=== PATIENT | male | born 1995 | race Caucasian/White ===

== ENCOUNTER 2020-03-31 08:26 | Emergency (ER) | payer OTHER ==
[2020-03-31 08:34] VITALS: BP 122/73; PULSE 180
--- NOTE | 2020-03-31 08:54 | EDM.PDOC ---
ED HPI GENERAL MEDICAL PROBLEM - General Chief Complaint: Trauma Stated Complaint: trauma Time Seen by Provider: 03/31/20 08:41 Source of Information: Reports: Patient History Limitations: Reports: No Limitations - History of Present Illness INITIAL COMMENTS - FREE TEXT/NARRATIVE: This patient is a 25 year old male that presents to the ER via private vehicle. 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 He reports his safety harness caught, and dragged him several feet on top of the train, then he fell down in between the trains about 20 feet. Trauma Code was called. Patient undressed for exam. Patient was ambulatory into the ER. Patient reports his only pain complaint is to the left shoulder and left elbow up to the shoulder. Patient denies hitting his head, loc, n, v, vision changes, back pain, neck pain, loc, abd pain, urinary/bowel incontinence, legs pain, RUE pain. Patient has refused pain medications. Onset: Today Onset Date: 03/31/20 Duration: Other ([employer]) Location: Reports: Back, Upper Extremity, Left Front/Back Body Image: 1 - superficial abrasions 2 - pain, tenderness. Left anterior shoulder/clavicle. 3 - pain, tenderness. Quality: Reports: Ache, Throbbing Severity: Moderate Improves with: Reports: Immobilization Worsens with: Reports: Movement Associated Symptoms: Denies: Confusion, Chest Pain, Cough, cough w sputum, Diaphoresis, Fever/Chills, Headaches, Loss of Appetite, Malaise, Nausea/Vomiting , Rash, Seizure, Shortness of Breath, Syncope, Weakness Left Shoulder Pain Score (Numeric/FACES): 8 - Related Data Allergies Allergy/AdvReac Type Severity Reaction Status Date / Time No Known Allergies Allergy Verified 03/31/20 08:27 Home Meds: Home Meds DULoxetine HCl [Duloxetine HCl] 20 mg PO DAILY 03/31/20 [History] Topiramate 50 mg PO DAILY 03/31/20 [History] Past Medical History - Past Health History Medical/Surgical History: Denies Medical/Surgical History HEENT History: Reports: None Other HEENT History: HX OF 13 concussions Other Neuro History: hx of 13 concussions - Past Surgical History HEENT Surgical History: Reports: None Review of Systems - Review of Systems Review Of Systems: See Below Constitutional: Reports: No Symptoms Eyes: Reports: No Symptoms. Denies: Blurred Vision, Foreign Body Sensation, Pain, Vision Change Ears: Reports: No Symptoms Nose: Reports: No Symptoms Mouth/Throat: Reports: No Symptoms Respiratory: Reports: No Symptoms. Denies: Shortness of Breath, Wheezing, Pleuritic Chest Pain, Cough, Sputum, Hemoptysis Cardiovascular: Reports: No Symptoms. Denies: Chest Pain, Lightheadedness, Palpitations, Syncope GI/Abdominal: Reports: No Symptoms. Denies: Abdominal Pain, Nausea, Vomiting Genitourinary: Reports: No Symptoms Musculoskeletal: Reports: Shoulder Pain (left), Arm Pain (left upper). Denies: Neck Pain, Back Pain, Hand Pain, Leg Pain, Foot Pain Skin: Reports: No Symptoms Neurological: Reports: No Symptoms. Denies: Confusion, Dizziness, Headache, Seizure, Syncope, Tingling, Tremors, Trouble Speaking, Difficulty Walking, Weakness, Change in Speech, Gait Disturbance Psychiatric: Reports: No Symptoms ED EXAM, GENERAL - Physical Exam Exam: See Below Exam Limited By: No Limitations General Appearance: Alert, WD/WN, No Apparent Distress Eye Exam: Bilateral Eye: EOMI, Normal Inspection, PERRL Ears: Normal External Exam, Normal Canal, Hearing Grossly Normal, Normal TMs Ear Exam: Bilateral Ear: Auricle Normal, Canal Normal, TM normal Nose: Normal Inspection, Normal Mucosa, No Blood. No: Nasal Tenderness, Nasal Deformity Throat/Mouth: Normal Inspection, Normal Lips, Normal Teeth, Normal Gums, Normal Oropharynx, Normal Voice, No Airway Compromise Head: Atraumatic, Normocephalic. No: Facial Swelling, Facial Tenderness, Sinus Tenderness Neck: Normal Inspection, Supple, Non-Tender, Full Range of Motion. No: Limited Range of Motion, Tender Lateral, Tender Midline Respiratory/Chest: No Respiratory Distress, Lungs Clear, Normal Breath Sounds, No Accessory Muscle Use, Chest Non-Tender. No: Respiratory Distress, Decreased Breath Sounds, Crackles, Rales, Rhonchi, Wheezing, Stridor, Pleural Rub, Accessory Muscle Use, Retractions, Splinting, Prolonged Expiration Cardiovascular: Normal Peripheral Pulses, Regular Rate, Rhythm, No Edema, No Gallop, No JVD, No Murmur, No Rub Peripheral Pulses: 2+: Radial (L), Radial (R), Posterior Tibial (L), Posterior Tibial (R), Dorsalis Pedis (L), Dorsalis Pedis (R) GI/Abdominal: Normal Bowel Sounds, Soft, Non-Tender, No Organomegaly, No Distention, No Abnormal Bruit, No Mass, Pelvis Stable Back Exam: Full Range of Motion. No: Normal Inspection (abrasions), CVA Tenderness (L), CVA Tenderness (R), Decreased Range of Motion, Muscle Spasm, Paraspinal Tenderness, Vertebral Tenderness Extremities: No Pedal Edema, Normal Capillary Refill, Limited Range of Motion ( Left shoulder/uppe arm due to pain. In arm sling position. ), Other (Pain, tenderness left shoulder atnerior, left upper arm humerus, left elbow. Pulses +2 , cap refill < 2 sec, sensory intact. Neurovascular intact. ) Neurological: Alert, Oriented, Normal Cognition, Normal Gait, No Motor/Sensory Deficits Psychiatric: Normal Affect, Normal Mood Skin Exam: Warm, Dry, Normal Color, No Rash, Wound/Incision (superficial abrasions left back.) ED TRAUMA PROCEDURES - Splinting Left Upper Extremity Pre-Procedure NV Status: Normal Post-Procedure NV Status: Normal Splint Material: Sling Applied & Form Fitted By: Nurse Provider Post-Splint Application NV Check: NV Status Normal, Good Position Course - Vital Signs Last Recorded V/S: Last Vital Signs Temp 98.7 F 03/31/20 08:31 Pulse 180 H 03/31/20 08:31 Resp 18 03/31/20 08:31 BP 122/73 03/31/20 08:31 Pulse Ox 97 03/31/20 08:31 - Orders/Labs/Meds Orders: Active Orders 24 hr Category Date Time Status Chest 2V [CR] Stat Exams 03/31/20 08:41 Taken Elbow Min 3V Lt [CR] Stat Exams 03/31/20 08:41 Taken Shoulder Comp Lt [CR] Stat Exams 03/31/20 08:41 Taken Labs: Laboratory Tests 03/31/20 03/31/20 03/31/20 Range/Units 08:43 08:43 08:43 WBC 5.0 (5.0-10.0) 10^3/uL RBC 5.09 (4.50-6.00) 10^6/uL Hgb 15.0 (14.0-18.0) g/dL Hct 43.0 (40.0-54.0) % MCV 84.5 (82.0-94.0) fL MCH 29.5 (27.0-32.0) pg MCHC 34.9 (33.0-38.0) g/dL RDW Coeff of Jorge 13.1 (11.0-15.0) % Plt Count 278 (150-400) 10^3/uL Neut % (Auto) 58.2 (35-85) % Lymph % (Auto) 32.2 (10-55) % Monona % (Auto) 6.8 (0-16) % Eos % (Auto) 2.4 (0-5) % Baso % (Auto) 0.4 (0-3) % Neut # (Auto) 2.91 (1.80-7.00) 10^3/uL Lymph # (Auto) 1.61 (1.00-4.80) 10^3/uL Monona # (Auto) 0.34 (0.00-0.80) 10^3/uL Eos # (Auto) 0.12 (0.00-0.45) 10^3/uL Baso # (Auto) 0.02 10^3/uL PT 10.0 (9.7-12.3) SEC INR 0.99 (0.92-1.18) Sodium 141 (136-145) mEq/L Potassium 3.6 (3.5-5.0) mEq/L Chloride 105 (98-106) mEq/L Carbon Dioxide 26 (21-32) mmol/L BUN 17 (7-18) mg/dL Creatinine 1.2 (0.7-1.3) mg/dL Est Cr Clr Drug Dosing 89.51 mL/min Estimated GFR (MDRD) > 60 (>=60) mL/min Glucose 116 H (75-99) mg/dL Lactic Acid (0.4-2.0) mmol/L Calcium 9.0 (8.4-10.1) mg/dL Total Bilirubin 0.9 (0.0-1.0) mg/dL AST 24 (15-37) U/L ALT 58 (12-78) U/L Alkaline Phosphatase 55 (46-116) U/L Total Protein 7.4 (6.4-8.2) g/dL Albumin 4.1 (3.4-5.0) g/dL Amylase 40 (25-115) U/L Lipase 101 (73-393) U/L Urine Color (YELLOW) Urine Appearance (CLEAR) Urine pH (4.5-8.0) Ur Specific Beebe (1.003-1.020) Urine Protein (NEGATIVE) mg/dL Urine Glucose (UA) (NEGATIVE) mg/dL Urine Ketones (NEGATIVE) mg/dL Urine Occult Blood (NEGATIVE) Urine Nitrite (NEGATIVE) Urine Bilirubin (NEGATIVE) Urine Urobilinogen (0.2-1.0) EU/dL Ur Leukocyte Esterase (NEGATIVE) Urine RBC (0-5) /HPF Urine WBC (0-5) /HPF Ur Epithelial Cells (NOT SEEN) /HPF Urine Bacteria (NOT SEEN) /HPF 03/31/20 03/31/20 Range/Units 08:43 09:15 WBC (5.0-10.0) 10^3/uL RBC (4.50-6.00) 10^6/uL Hgb (14.0-18.0) g/dL Hct (40.0-54.0) % MCV (82.0-94.0) fL MCH (27.0-32.0) pg MCHC (33.0-38.0) g/dL RDW Coeff of Jorge (11.0-15.0) % Plt Count (150-400) 10^3/uL Neut % (Auto) (35-85) % Lymph % (Auto) (10-55) % Monona % (Auto) (0-16) % Eos % (Auto) (0-5) % Baso % (Auto) (0-3) % Neut # (Auto) (1.80-7.00) 10^3/uL Lymph # (Auto) (1.00-4.80) 10^3/uL Monona # (Auto) (0.00-0.80) 10^3/uL Eos # (Auto) (0.00-0.45) 10^3/uL Baso # (Auto) 10^3/uL PT (9.7-12.3) SEC INR (0.92-1.18) Sodium (136-145) mEq/L Potassium (3.5-5.0) mEq/L Chloride (98-106) mEq/L Carbon Dioxide (21-32) mmol/L BUN (7-18) mg/dL Creatinine (0.7-1.3) mg/dL Est Cr Clr Drug Dosing mL/min Estimated GFR (MDRD) (>=60) mL/min Glucose (75-99) mg/dL Lactic Acid 2.0 (0.4-2.0) mmol/L Calcium (8.4-10.1) mg/dL Total Bilirubin (0.0-1.0) mg/dL AST (15-37) U/L ALT (12-78) U/L Alkaline Phosphatase (46-116) U/L Total Protein (6.4-8.2) g/dL Albumin (3.4-5.0) g/dL Amylase (25-115) U/L Lipase (73-393) U/L Urine Color Yellow (YELLOW) Urine Appearance Clear (CLEAR) Urine pH 6.0 (4.5-8.0) Ur Specific Beebe 1.025 H (1.003-1.020) Urine Protein Negative (NEGATIVE) mg/dL Urine Glucose (UA) Negative (NEGATIVE) mg/dL Urine Ketones Negative (NEGATIVE) mg/dL Urine Occult Blood Negative (NEGATIVE) Urine Nitrite Negative (NEGATIVE) Urine Bilirubin Negative (NEGATIVE) Urine Urobilinogen 0.2 (0.2-1.0) EU/dL Ur Leukocyte Esterase Negative (NEGATIVE) Urine RBC Not seen (0-5) /HPF Urine WBC 0-5 (0-5) /HPF Ur Epithelial Cells Rare (NOT SEEN) /HPF Urine Bacteria Occasional H (NOT SEEN) /HPF - Radiology Interpretation Free Text/Narrative:: CXR: normal Left shoulder/elbow: no fracture, no dislocation. - Re-Assessments/Exams Free Text/Narrative Re-Assessment/Exam: 03/31/20 09:01 HR on exam is 80. No IV established due to no core injury on exam and patient refused medications for pain. Hemodynamically stable. 03/31/20 09:56 All labs are unremarkable. Xrays show no fractures or dislocations. I will discharge this patient. Did discuss if pain continues, he is to see his PCP. Possible further imaging or CT/MRI possible. 03/31/20 10:26 Departure - Departure Time of Disposition: 09:58 Disposition: Home, Self-Care 01 Condition: Fair Clinical Impression: Left elbow contusion Qualifiers: Encounter type: initial encounter Qualified Code(s): S50.02XA - Contusion of left elbow, initial encounter Sprain of left shoulder Qualifiers: Encounter type: initial encounter Shoulder sprain type: unspecified sprain Qualified Code(s): S43.402A - Unspecified sprain of left shoulder joint, initial encounter - Discharge Information *PRESCRIPTION DRUG MONITORING PROGRAM REVIEWED*: Not Applicable *COPY OF PRESCRIPTION DRUG MONITORING REPORT IN PATIENT ROBERT: Not Applicable Instructions: Shoulder Sprain, Elbow Contusion, [id number] Referrals: PCP,None [Primary Care Provider] - Forms: ED Department Discharge Additional Instructions: Followup with your primary care provider Followup with your primary care provider if still having pain in 10-14 days Rest Ice Elevate Sling as needed Tylenol or Motrin for pain Sepsis Event Note - Evaluation Sepsis Screening Result: No Definite Risk - Focused Exam Vital Signs: Vital Signs Temp Pulse Resp BP Pulse Ox 03/31/20 08:31 98.7 F 180 H 18 122/73 97 Date Exam was Performed: 03/31/20 Time Exam was Performed: 10:26 - My Orders Last 24 Hours: My Active Orders 03/31/20 08:41 Chest 2V [CR] Stat Elbow Min 3V Lt [CR] Stat Shoulder Comp Lt [CR] Stat - Assessment/Plan Last 24 Hours: My Active Orders 03/31/20 08:41 Chest 2V [CR] Stat Elbow Min 3V Lt [CR] Stat Shoulder Comp Lt [CR] Stat
[2020-03-31 09:00] LABS: CHLORIDE,CL 105 mEq/L (98-106); SODIUM,NA 141 mEq/L (136-145)
== END 2020-03-31 10:10 | disposition home or self-care (01) ==
LOC: CC.ED 08:26
DX: S43.402A Unspecified sprain of left shoulder joint, initial encounter (principal); S50.02XA Contusion of left elbow, initial encounter; Z79.899 Other long term (current) drug therapy; V81.6XXA Occupant of railway train or railway vehicle injured by fall from railway train or railway vehicle, initial encounter
CPT/HCPCS: 36415; 71046; 73030-LT; 73080-LT; 80053; 81001; 82150; 83605; 83690; 85025; 85610; 99283-25

== ENCOUNTER 2020-06-05 18:50 | Emergency (ER) | payer BC ==
--- NOTE | 2020-06-05 19:14 | EDM.PDOC ---
ED HPI GENERAL MEDICAL PROBLEM - General Chief Complaint: General Stated Complaint: concussion Time Seen by Provider: 06/05/20 19:00 Source of Information: Reports: Patient History Limitations: Reports: No Limitations - History of Present Illness INITIAL COMMENTS - FREE TEXT/NARRATIVE: Was bull riding on Wednesday when he "took a hit to the head" and since then he has had some dizziness and lightheadedness. He states that it has not become better so he came in. Has noted that he is falling asleep easier. He states that he wakes up feeling good and then later in the day he gets really tired. He will randomly become dizzy but has not passed out. Had a small laceration to the forehead that they put quick clot on and he refused care at the time of the accident. He has some swelling and discomfort to the right calf where he got hit by the bull. It is mildly swollen and bruised but no open area noted. He has been walking on it. GCS= 15 on admission. Onset Date: 05/31/20 Location: Reports: Head - Related Data Allergies Allergy/AdvReac Type Severity Reaction Status Date / Time No Known Allergies Allergy Verified 06/05/20 19:12 Home Meds: Home Meds DULoxetine HCl [Duloxetine HCl] 20 mg PO DAILY 03/31/20 [History] Topiramate 50 mg PO DAILY 03/31/20 [History] Past Medical History - Past Health History Medical/Surgical History: Denies Medical/Surgical History HEENT History: Reports: None Other HEENT History: HX OF 13 concussions Other Neuro History: hx of 13 concussions - Past Surgical History HEENT Surgical History: Reports: None Social & Family History - Caffeine Use Caffeine Use: Reports: Coffee ED ROS GENERAL - Review of Systems Review Of Systems: See Below Constitutional: Denies: Fever, Chills, Weakness HEENT: Reports: No Symptoms Respiratory: Reports: No Symptoms Cardiovascular: Reports: No Symptoms GI/Abdominal: Reports: No Symptoms : Reports: No Symptoms Musculoskeletal: Reports: Leg Pain Skin: Reports: Bruising (right calf) Neurological: Reports: Dizziness, Headache. Denies: Tingling, Trouble Speaking, Difficulty Walking, Change in Speech, Gait Disturbance Psychiatric: Reports: No Symptoms ED EXAM, GENERAL - Physical Exam Exam: See Below Exam Limited By: No Limitations General Appearance: Alert, WD/WN, No Apparent Distress Eye Exam: Bilateral Eye: PERRL (4mm and equal) Ears: Normal External Exam, Normal Canal, Normal TMs Nose: Normal Inspection Throat/Mouth: Normal Inspection, Normal Oropharynx Head: Atraumatic, Normocephalic Neck: Normal Inspection, Supple, Non-Tender, Full Range of Motion Respiratory/Chest: No Respiratory Distress, Lungs Clear, Normal Breath Sounds Cardiovascular: Regular Rate, Rhythm GI/Abdominal: Normal Bowel Sounds, Soft, Non-Tender, No Organomegaly Extremities: Normal Inspection, Normal Range of Motion, No Pedal Edema, Normal Capillary Refill Neurological: Alert, Oriented, CN II-XII Intact Skin Exam: Warm, Dry, Intact Course - Orders/Labs/Meds Orders: Active Orders 24 hr Category Date Time Status Head wo Cont [CT] Stat Exams 06/05/20 19:06 Ordered Departure - Departure Time of Disposition: 19:28 Disposition: Home, Self-Care 01 Condition: Good Clinical Impression: Post concussion syndrome - Discharge Information *PRESCRIPTION DRUG MONITORING PROGRAM REVIEWED*: Not Applicable *COPY OF PRESCRIPTION DRUG MONITORING REPORT IN PATIENT ROBERT: Not Applicable Instructions: Post-Concussion Syndrome, [id number] Referrals: Latanya Louis PA [Primary Care Provider] - Additional Instructions: Rest push fluids No bull riding until symptoms have totally resolved wear helmet when riding in the future tylenol as needed for headaches - Problem List & Annotations (1) Post concussion syndrome SNOMED Code(s): 31830038 Code(s): F07.81 - POSTCONCUSSIONAL SYNDROME Status: Acute Priority: High Current Visit: Yes - Problem List Review Problem List Initiated/Reviewed/Updated: Yes - My Orders Last 24 Hours: My Active Orders 06/05/20 19:06 Head wo Cont [CT] Stat - Assessment/Plan Last 24 Hours: My Active Orders 06/05/20 19:06 Head wo Cont [CT] Stat
[2020-06-05 19:23] VITALS: BP 135/77; PULSE 87
== END 2020-06-05 19:31 | disposition home or self-care (01) ==
LOC: CC.ED 18:50
DX: F07.81 Postconcussional syndrome (principal); Z79.899 Other long term (current) drug therapy
CPT/HCPCS: 70450; 99284-25

== ENCOUNTER 2021-01-20 09:15 | Emergency (ER) | payer BC, OTHER ==
[2021-01-20 09:24] VITALS: BP 163/99; PULSE 83
[2021-01-20] MEDS ORDERED: Morphine 4 MG/ML VIAL IVPUSH ONE ×2 (09:41→10:27)
[2021-01-20] MEDS ORDERED: Ondansetron 4 MG/2 ML SDV IVPUSH ONE (09:42)
[2021-01-20] MEDS ORDERED: Sodium Chloride 0.9% 1,000 ML IV SCH (09:45)
--- NOTE | 2021-01-20 09:51 | EDM.PDOC ---
ED HPI GENERAL MEDICAL PROBLEM - General Chief Complaint: General Stated Complaint: ran over by a cow Time Seen by Provider: 01/20/21 09:20 Source of Information: Reports: Patient History Limitations: Reports: No Limitations - History of Present Illness INITIAL COMMENTS - FREE TEXT/NARRATIVE: This patient is a 25 year old male that presents to the ER. Patient arrives private vehicle, patient drove himself. Patient reports that [place] the [place]. Patient reports he was on the 4 decker, got off and was going to tag a calf, when another calf running hit him in the left side of his body knocking him into the fence. Patient reports then again the same calf hit him again in the left side and then stepped on his left ankle. Patient reports having pain to the left side of chest, left wrist, left ankle. TRAUMA CODE CALLED due to mechanism of injury, multiple injury locations, and core body injury. The patient is alert and oriented. He is able to tell me what happened and his name. Patient is not in C-Collar or backboard, no treatments prior to arrival. Patient denies shortness of breath, airway difficulties. Breath sounds heard equal and bilateral. Oxygen applied to patient. Patient hooked to monitor, vital signs stable, no signs of shock at this time. 2 Large bore IVs placed, NS 1L bolus started per ATLS Protocol, C-Collar applied and cervical restriction utilized. Pulses +2 all distal and femoral. No US capabilities for FAST Exam. Disability exam GCS 15. Patient denies hitting his head, loc, n, v, vision changes, headache. Denies numbness, tingling, loss of sensation to extremities. Exposure, patient undressed for exam, warm blankets applied. Patient is log rolled using 4 person assist with cervical restrictions. There is mild pain mid to upper thoracic vertebral, left lateral over scapular pain, cervical pain at vertebral c5 location, no step offs. Pelvis is stable. With NO neurological deficits, blood from rectum, incontinence, pelvis, pelvic, abd pain, Rectal Exam is deferred. CXR plate is put under patient, log rolled back, image taken, log rolled up, all while using cervical restriction. Unable to do a pelvis xray due to only having 1 xray plate. Therefore, again log roll patient repeated using cervical restrictions for pelvic xray. CXR: no hemo or pneumo seen, lungs clear. Pelvis xray: no fracture seen. During Primary Survey patient has left chest, thoracic, cervical tenderness. Patient vital signs are stable, no evidence of shock or hemorrhage. NO signs of neurogenic shock. Secondary survey completed per ATLS protocol. Patient at this time being stable will be transported with RN to CT for imaging. At this time, no reason to believe a transfer is needed. Onset: Today Onset Date: 01/20/21 Duration: Other ([employer]) Location: Reports: Neck Front/Back Body Image: 1 - pain, tenderness 2 - pain, tenderness 3 - pain, tenderness. 4 - pain, tenderness 5 - pain, tenderness 6 - pain, tenderness Severity: Moderate Improves with: Reports: Immobilization Worsens with: Reports: Movement Context: Reports: Trauma Associated Symptoms: Reports: Chest Pain. Denies: Confusion, Cough, cough w sputum, Diaphoresis, Fever/Chills, Headaches, Loss of Appetite, Malaise, Nausea/Vomiting, Seizure, Shortness of Breath, Syncope, Weakness Left Ankle Pain Score (Numeric/FACES): 8 Left Shoulder Pain Score (Numeric/FACES): 8 - Related Data Allergies Allergy/AdvReac Type Severity Reaction Status Date / Time morphine Allergy Bradycardia Verified 01/20/21 11:21 Home Meds: Home Meds . [No Known Home Meds] 01/20/21 [History] Past Medical History - Past Health History Medical/Surgical History: Denies Medical/Surgical History HEENT History: Reports: None Other HEENT History: HX OF 13 concussions Neurological History: Reports: Concussion, Head Trauma Other Neuro History: hx of 13 concussions Psychiatric History: Reports: Bipolar - Past Surgical History HEENT Surgical History: Reports: None Social & Family History - Caffeine Use Caffeine Use: Reports: Coffee ED ROS GENERAL - Review of Systems Review Of Systems: See Below Constitutional: Reports: No Symptoms HEENT: Reports: No Symptoms Respiratory: Reports: No Symptoms. Denies: Shortness of Breath, Wheezing, Pleuritic Chest Pain, Cough, Sputum, Hemoptysis Cardiovascular: Reports: Chest Pain (left upper anterior). Denies: Blood Pressure Problem, Dyspnea on Exertion, Edema, Lightheadedness, Palpitations, Syncope Endocrine: Reports: No Symptoms GI/Abdominal: Reports: No Symptoms. Denies: Abdominal Pain, Nausea, Vomiting : Reports: No Symptoms. Denies: Hematuria, Incontinence Musculoskeletal: Reports: Neck Pain, Back Pain, Joint Pain (left wrist, left ankle) Skin: Reports: No Symptoms. Denies: Bruising, Wound Neurological: Reports: No Symptoms. Denies: Confusion, Dizziness, Headache, Numbness, Seizure, Syncope, Tingling, Trouble Speaking, Difficulty Walking, Weakness, Change in Speech, Gait Disturbance Psychiatric: Reports: No Symptoms Hematologic/Lymphatic: Reports: No Symptoms Immunologic: Reports: No Symptoms ED EXAM, GENERAL - Physical Exam Exam: See Below Exam Limited By: No Limitations General Appearance: Alert, WD/WN, No Apparent Distress Eye Exam: Bilateral Eye: EOMI, Normal Inspection, PERRL (4mm reactive.) Ears: Normal External Exam, Normal Canal, Hearing Grossly Normal, Normal TMs Ear Exam: Bilateral Ear: Auricle Normal, Canal Normal, TM normal Nose: Normal Inspection, Normal Mucosa, No Blood Throat/Mouth: Normal Inspection, Normal Lips, Normal Teeth, Normal Gums, Normal Oropharynx, Normal Voice, No Airway Compromise Head: Atraumatic, Normocephalic. No: Facial Swelling, Facial Tenderness, Sinus Tenderness Neck: Normal Inspection, Full Range of Motion (Patient has ROM intact as he is walking into the ER. Then C-Collar applied upon arrival), Tender Lateral (left lateral ), Tender Midline (c5 tenderness vertebral. No step offs. ) Respiratory/Chest: No Respiratory Distress, Lungs Clear, Normal Breath Sounds, No Accessory Muscle Use, Other (Left anterior chest wall tenderness mid nipple line about 2-4 intercostal space. No flail chest, no splinting, no open chest wounds. No eccyhmosis. ) Cardiovascular: Normal Peripheral Pulses, Regular Rate, Rhythm, No Edema, No Gallop, No JVD, No Murmur, No Rub Peripheral Pulses: 2+: Radial (L), Radial (R), Femoral (L), Femoral (R), Posterior Tibial (L), Posterior Tibial (R), Dorsalis Pedis (L), Dorsalis Pedis (R) GI/Abdominal: Normal Bowel Sounds, Soft, Non-Tender, No Organomegaly, No Disten tion, No Abnormal Bruit, No Mass, Pelvis Stable. No: Distended, Guarding, Rigid, Tender (Male) Exam: Deferred Rectal (Males) Exam: Deferred Back Exam: Normal Inspection, Full Range of Motion, Paraspinal Tenderness (left thoracic), Vertebral Tenderness (cervical c5. thoracic mid. ). No: CVA Tenderness (L), CVA Tenderness (R) Extremities: Normal Inspection, Normal Range of Motion, No Pedal Edema, Normal Capillary Refill, Other (tenderness pain left wrist distal. Left medial ankle. ROM intact. Pulses +2, cap refill < 2 sec, sensory/motor function intact. neurovascular intact. ) Neurological: Alert, Oriented, Normal Cognition, Normal Gait, No Motor/Sensory Deficits. No: Inattentive, Confused, Disoriented, Slow to Respond, Unresponsive, Memory Loss Remote Events, Memory Loss Recent Events, Abnormal Gait, Sensory/Motor Deficit Psychiatric: Normal Affect, Normal Mood Skin Exam: Warm, Dry, Intact, Normal Color, No Rash #1 Interpretation EKG Date: 01/20/21 Time: 10:44 Rhythm: Other (bradycardia) Rate (Beats/Min): 59 ST-T: Normal Comparison: NA - No Prior EKG Course - Vital Signs Last Recorded V/S: Last Vital Signs Temp 98.2 F 01/20/21 09:22 Pulse 83 01/20/21 09:22 Resp 16 01/20/21 09:22 BP 163/99 H 01/20/21 09:22 Pulse Ox 96 01/20/21 09:22 - Orders/Labs/Meds Orders: Active Orders 24 hr Category Date Time Status Ankle Min 3V Lt [CR] Stat Exams 01/20/21 09:46 Taken Cervical Spine wo Cont [CT] Stat Exams 01/20/21 09:46 Taken Chest 1V Frontal [CR] Stat Exams 01/20/21 09:29 Taken Chest w Cont [CT] Routine Exams 01/20/21 Taken Pelvis 1V or 2V [CR] Stat Exams 01/20/21 09:29 Taken Thoracic Spine wo Cont [CT] Stat Exams 01/20/21 09:46 Taken Wrist 2V Lt [CR] Stat Exams 01/20/21 09:46 Taken Sodium Chloride 0.9% [Normal Saline] 1,000 ml Med 01/20/21 09:45 Active IV ASDIRECTED Medication Orders Sodium Chloride (Normal Saline) 1,000 mls @ 999 mls/hr IV ASDIRECTED ZAY Last Admin: 01/20/21 10:00 Dose: 999 mls/hr Documented by: SANGITA Labs: Laboratory Tests 01/20/21 01/20/21 01/20/21 Range/Units 09:33 09:50 09:50 WBC 5.1 (5.0-10.0) 10^3/uL RBC 5.01 (4.50-6.00) 10^6/uL Hgb 14.9 (14.0-18.0) g/dL Hct 42.6 (40.0-54.0) % MCV 85.0 (82.0-94.0) fL MCH 29.7 (27.0-32.0) pg MCHC 35.0 (33.0-38.0) g/dL RDW Coeff of Jorge 12.8 (11.0-15.0) % Plt Count 309 (150-400) 10^3/uL Neut % (Auto) 54.9 (35-85) % Lymph % (Auto) 32.4 (10-55) % [facility] % (Auto) 10.0 (0-16) % Eos % (Auto) 2.3 (0-5) % Baso % (Auto) 0.4 (0-3) % Neut # (Auto) 2.81 (1.80-7.00) 10^3/uL Lymph # (Auto) 1.66 (1.00-4.80) 10^3/uL [facility] # (Auto) 0.51 (0.00-0.80) 10^3/uL Eos # (Auto) 0.12 (0.00-0.45) 10^3/uL Baso # (Auto) 0.02 10^3/uL Sodium 141 (136-145) mEq/L Potassium 4.4 D (3.5-5.0) mEq/L Chloride 105 (98-106) mEq/L Carbon Dioxide 25 (21-32) mmol/L BUN 14 (7-18) mg/dL Creatinine 1.0 (0.7-1.3) mg/dL Est Cr Clr Drug Dosing 103.68 mL/min Estimated GFR (MDRD) > 60 (>=60) mL/min Glucose 105 H (75-99) mg/dL Lactic Acid (0.4-2.0) mmol/L Calcium 8.9 (8.4-10.1) mg/dL Total Bilirubin 0.6 (0.0-1.0) mg/dL AST 33 (15-37) U/L ALT 86 H (12-78) U/L Alkaline Phosphatase 48 (46-116) U/L Creatine Kinase 164 (35-232) U/L Troponin I < 0.017 (0.00-0.06) ng/mL Total Protein 7.3 (6.4-8.2) g/dL Albumin 3.8 (3.4-5.0) g/dL Amylase 40 (25-115) U/L Urine Color Yellow (YELLOW) Urine Appearance Clear (CLEAR) Urine pH 5.5 (4.5-8.0) Ur Specific [place] >= 1.030 H (1.003-1.020) Urine Protein Negative (NEGATIVE) mg/dL Urine Glucose (UA) Negative (NEGATIVE) mg/dL Urine Ketones Negative (NEGATIVE) mg/dL Urine Occult Blood Negative (NEGATIVE) Urine Nitrite Negative (NEGATIVE) Urine Bilirubin Negative (NEGATIVE) Urine Urobilinogen 0.2 (0.2-1.0) EU/dL Ur Leukocyte Esterase Negative (NEGATIVE) 01/20/21 Range/Units 09:50 WBC (5.0-10.0) 10^3/uL RBC (4.50-6.00) 10^6/uL Hgb (14.0-18.0) g/dL Hct (40.0-54.0) % MCV (82.0-94.0) fL MCH (27.0-32.0) pg MCHC (33.0-38.0) g/dL RDW Coeff of Jorge (11.0-15.0) % Plt Count (150-400) 10^3/uL Neut % (Auto) (35-85) % Lymph % (Auto) (10-55) % [facility] % (Auto) (0-16) % Eos % (Auto) (0-5) % Baso % (Auto) (0-3) % Neut # (Auto) (1.80-7.00) 10^3/uL Lymph # (Auto) (1.00-4.80) 10^3/uL [facility] # (Auto) (0.00-0.80) 10^3/uL Eos # (Auto) (0.00-0.45) 10^3/uL Baso # (Auto) 10^3/uL Sodium (136-145) mEq/L Potassium (3.5-5.0) mEq/L Chloride (98-106) mEq/L Carbon Dioxide (21-32) mmol/L BUN (7-18) mg/dL Creatinine (0.7-1.3) mg/dL Est Cr Clr Drug Dosing mL/min Estimated GFR (MDRD) (>=60) mL/min Glucose (75-99) mg/dL Lactic Acid 1.5 (0.4-2.0) mmol/L Calcium (8.4-10.1) mg/dL Total Bilirubin (0.0-1.0) mg/dL AST (15-37) U/L ALT (12-78) U/L Alkaline Phosphatase (46-116) U/L Creatine Kinase (35-232) U/L Troponin I (0.00-0.06) ng/mL Total Protein (6.4-8.2) g/dL Albumin (3.4-5.0) g/dL Amylase (25-115) U/L Urine Color (YELLOW) Urine Appearance (CLEAR) Urine pH (4.5-8.0) Ur Specific [place] (1.003-1.020) Urine Protein (NEGATIVE) mg/dL Urine Glucose (UA) (NEGATIVE) mg/dL Urine Ketones (NEGATIVE) mg/dL Urine Occult Blood (NEGATIVE) Urine Nitrite (NEGATIVE) Urine Bilirubin (NEGATIVE) Urine Urobilinogen (0.2-1.0) EU/dL Ur Leukocyte Esterase (NEGATIVE) Meds: Medications Generic Name Dose Route Start Last Admin Trade Name Freq PRN Reason Stop Dose Admin Sodium Chloride 1,000 mls @ 999 mls/hr 01/20/21 09:45 01/20/21 10:00 Normal Saline IV 999 mls/hr ASDIRECTED ZAY Administration Discontinued Medications Generic Name Dose Route Start Last Admin Trade Name Freq PRN Reason Stop Dose Admin Diphenhydramine HCl 25 mg 01/20/21 10:38 01/20/21 10:42 Diphenhydramine 50 Mg/Ml Sdv IVPUSH 03/22/21 10:39 25 mg ONETIME ONE Administration Iopamidol 100 ml 01/20/21 10:31 01/20/21 10:34 Iopamidol 755 Mg/Ml 100 Ml Bottle IVPUSH 01/20/21 10:32 100 ml ONETIME ONE Administration Morphine Sulfate 4 mg 01/20/21 09:41 01/20/21 09:52 Morphine 4 Mg/Ml Vial IVPUSH 01/20/21 09:42 4 mg ONETIME ONE Administration Morphine Sulfate 4 mg 01/20/21 10:27 01/20/21 10:34 Morphine 4 Mg/Ml Vial IVPUSH 01/20/21 10:28 4 mg ONETIME ONE Administration Ondansetron HCl 4 mg 01/20/21 09:42 01/20/21 09:53 Ondansetron 4 Mg/2 Ml Sdv IVPUSH 01/20/21 09:43 4 mg ONETIME ONE Administration - Radiology Interpretation Free Text/Narrative:: Left wrist: no acute findings Left ankle: no acute findings Cervical, Thoracic without contrast CT: No acute findings Chest with contrast IV: No acute findings. Pulmonary nodules lymph consistency. CT Results Date: 01/20/21 CT Results Time: 11:35 - Re-Assessments/Exams Free Text/Narrative Re-Assessment/Exam: 01/20/21 10:27 Patient has returned from CT, reports pain is coming back again to the left wrist mostly. Pain 7/10. Patient continues alert and oriented. GCS 15. Vital signs stable. 01/20/21 10:39 Just now after second dose of Morphine, patient now has a hive like rash up the left arm, extending into the right chest, and right neck. Patient now reports he feels short of breath. Morphine vs IV contrast reaction. Benadryl 25mg IV ordered, now. Airway evaluated again. Lung sounds are clear bilateral. Conversing in full and complete sentences without difficulty. GCS 15. 01/20/21 12:[address] and xrays show no acute findings. Trauma Code cancelled. GCS 15. Patient reports no more rash, shortness of breath. He reports he feels fine. Will discha rge patient home. C-Collar removed. Need followup about CT scan of chest and nodules. Departure - Departure Time of Disposition: 12:03 Disposition: Home, Self-Care 01 Condition: Fair Clinical Impression: Thoracic sprain Chest wall contusion Qualifiers: Encounter type: initial encounter Laterality: left Qualified Code(s): S20.212A - Contusion of left front wall of thorax, initial encounter Left ankle sprain Qualifiers: Encounter type: initial encounter Involved ligament of ankle: other ligament Qualified Code(s): S93.492A - Sprain of other ligament of left ankle, initial encounter Left wrist sprain Qualifiers: Encounter type: initial encounter Qualified Code(s): S63.502A - Unspecified sprain of left wrist, initial encounter Cervical strain, acute Qualifiers: Encounter type: initial encounter Qualified Code(s): S16.1XXA - Strain of muscle, fascia and tendon at neck level, initial encounter - Discharge Information *PRESCRIPTION DRUG MONITORING PROGRAM REVIEWED*: Not Applicable *COPY OF PRESCRIPTION DRUG MONITORING REPORT IN PATIENT ROBERT: Not Applicable Instructions: Ankle Sprain, [id number], Contusion, [id number], Wrist Sprain, Adult, Cervical Strain and Sprain Rehab-SportsMed, Muscle Strain, [id number], Blunt Chest Trauma Forms: ED Department Discharge Additional Instructions: Followup with primary care provider in 7-10 days for recheck and possible repeat imaging and evaluation Return to the ER for worsening of condition or any emergent concerns Rest Ice Elevate Arm sling in place Left ankle boot as needed Weight bearing as tolerated Tylenol or Motrin for pain over the counter Sepsis Event Note (ED) - Evaluation Sepsis Screening Result: No Definite Risk - Focused Exam Vital Signs: Vital Signs Temp Pulse Resp BP Pulse Ox 01/20/21 09:22 98.2 F 83 16 163/99 H 96 - My Orders Last 24 Hours: My Active Orders 01/20/21 Chest w Cont [CT] Routine 01/20/21 09:29 Chest 1V Frontal [CR] Stat Pelvis 1V or 2V [CR] Stat 01/20/21 09:45 Sodium Chloride 0.9% [Normal Saline] 1,000 ml IV ASDIRECTED 01/20/21 09:46 Ankle Min 3V Lt [CR] Stat Cervical Spine wo Cont [CT] Stat Thoracic Spine wo Cont [CT] Stat Wrist 2V Lt [CR] Stat - Assessment/Plan Last 24 Hours: My Active Orders 01/20/21 Chest w Cont [CT] Routine 01/20/21 09:29 Chest 1V Frontal [CR] Stat Pelvis 1V or 2V [CR] Stat 01/20/21 09:45 Sodium Chloride 0.9% [Normal Saline] 1,000 ml IV ASDIRECTED 01/20/21 09:46 Ankle Min 3V Lt [CR] Stat Cervical Spine wo Cont [CT] Stat Thoracic Spine wo Cont [CT] Stat Wrist 2V Lt [CR] Stat Plan: PLEASE SEE RN NOTE FOR PFSH
[2021-01-20 10:10] LABS: CHLORIDE,CL 105 mEq/L (98-106); SODIUM,NA 141 mEq/L (136-145)
[2021-01-20] MEDS ORDERED: Iopamidol 755 Mg/ML 100 ML Bottle IVPUSH ONE (10:31)
[2021-01-20] MEDS ORDERED: diphenhydrAMINE 50 MG/ML SDV IVPUSH ONE (10:38)
== END 2021-01-20 12:31 | disposition home or self-care (01) ==
LOC: CC.ED 09:15
DX: S93.492A Sprain of other ligament of left ankle, initial encounter (principal); S63.502A Unspecified sprain of left wrist, initial encounter; S23.3XXA Sprain of ligaments of thoracic spine, initial encounter; S16.1XXA Strain of muscle, fascia and tendon at neck level, initial encounter; S20.212A Contusion of left front wall of thorax, initial encounter; M25.512 Pain in left shoulder; R00.1 Bradycardia, unspecified; Z88.5 Allergy status to narcotic agent; W55.22XA Struck by cow, initial encounter
CPT/HCPCS: 36415; 71045; 71260; 72125; 72128; 72170; 73100-LT; 73610-LT; 80053; 81003; 82150; 82550; 83605; 84484; 85025; 93005; 96374; 96375; 96376; 99284-25; J1200; J2270; J2405; J7030; Q9967

== ENCOUNTER 2022-01-22 18:45 | Emergency (ER) | payer SELFPAY ==
[2022-01-22 18:53] VITALS: BP 152/88; PULSE 100
[2022-01-22] MEDS ORDERED: Lidocaine 2% 5 ML SDV INJECT ONE (19:00)
[2022-01-22] MEDS ORDERED: Diphtheria,Pertussis(Acell),Tetanus Vaccine 0.5 ML Syringe IM ONE (19:03)
[2022-01-22] MEDS ORDERED: Bacitracin/Neomycin/Polymyxin B Oint 0.9 GM U/D Packet TOP ONE (19:23)
== END 2022-01-22 19:35 | disposition home or self-care (01) ==
LOC: CC.ED 18:45
DX: S61.412A Laceration without foreign body of left hand, initial encounter (principal); Z23 Encounter for immunization; Z88.5 Allergy status to narcotic agent; W26.0XXA Contact with knife, initial encounter
CPT/HCPCS: 12001; 90471; 90715; 99282-25; 99283

== ENCOUNTER → 2022-10-09 | Day surgery (SDC) | payer SELFPAY ==
[~2022-10-09] MED LIST: Lactated Ringers 1,000 ML IV SCH; Propofol 200 MG/20 ML SDV ONE
[2022-10-09 10:35] VITALS: BP 114/75; PULSE 83
== END ==
LOC: CC.SDS 08:16
PROVIDERS: ATTEND Family Medicine
DX: K21.00 Gastro-esophageal reflux disease with esophagitis, without bleeding (principal); K25.9 Gastric ulcer, unspecified as acute or chronic, without hemorrhage or perforation; K29.60 Other gastritis without bleeding; F41.9 Anxiety disorder, unspecified; F90.9 Attention-deficit hyperactivity disorder, unspecified type; F39 Unspecified mood [affective] disorder; Z88.6 Allergy status to analgesic agent; Z79.899 Other long term (current) drug therapy
CPT/HCPCS: 43239; 87081; J2704; J7120